=== PATIENT | female | born 1990 | race Asian ===

== ENCOUNTER 2018-09-14 11:55 | Emergency (ER) | payer OTHER ==
[~2018-09-14] VITALS: Ht 165.1 cm; Wt 62.3 kg
[2018-09-14 11:56] VITALS: BP 134/95
[2018-09-14 12:43] LABS: INFLUENZA A AMPLIFICATION NEGATIVE (NEGATIVE); INFLUENZA B AMPLIFICATION NEGATIVE (NEGATIVE)
[2018-09-14] MEDS ORDERED: ACETAMINOPHEN 325 MG TAB PO ONE (14:15)
== END 2018-09-14 14:26 | disposition home or self-care (01) ==
LOC: M ED 11:55
DX: K52.9 Noninfective gastroenteritis and colitis, unspecified (principal); B34.9 Viral infection, unspecified; R10.9 Unspecified abdominal pain; N94.4 Primary dysmenorrhea; Z88.8 Allergy status to other drugs, medicaments and biological substances

== ENCOUNTER → 2019-06-04 | Outpatient (CLI) | payer OTHER ==
[2019-06-04 14:18] LABS: BASO % 0.3 % (0.0-1.0); EOS # 0.4 10^3/uL (0.0-0.5); EOS % 3.9 % (0.0-3.0); HEMATOCRIT 40.1 % (36.0-47.0); HEMOGLOBIN 13.4 g/dl (12.0-15.5); LYMPH # 1.8 10^3/uL (1.5-5.0); LYMPH % 19.6 % (24.0-44.0); MEAN CORPUSCULAR HGB CONC 33.4 g/dl (32.0-36.5); MEAN CORPUSCULAR VOLUME 86.8 fl (80.0-96.0); MONO % 10.6 % (0.0-5.0); NEUTROPHILS % 65.3 % (36.0-66.0); PLATELET COUNT, AUTOMATED 272 10^3/uL (150-450); RED BLOOD COUNT 4.62 10^6/uL (4.00-5.40); WHITE BLOOD COUNT 9.2 10^3/uL (4.0-10.0)
[2019-06-04 19:44] LABS: CHLAMYDIA DNA AMPLIFICATION NEGATIVE (NEGATIVE); GC DNA AMPLIFICATION NEGATIVE (NEGATIVE)
[2019-06-05 18:14] LABS: HEPATITIS C VIRUS ABY INDEX < 0.0 INDEX (<0.8); HIV 1&2 SCREEN CENTAUR NEGATIVE (NEGATIVE); RUBELLA IgG QUALITATIVE IMMUNE (IMMUNE)
== END ==
LOC: M PLALAB 11:41
PROVIDERS: ATTEND Advanced Practice Midwife
DX: Z34.01 Encounter for supervision of normal first pregnancy, first trimester (principal)

== ENCOUNTER → 2019-07-02 | Outpatient (CLI) | payer OTHER | LOC: M PLALAB 15:29 | PROVIDERS: ATTEND Advanced Practice Midwife | DX: Z13.79 Encounter for other screening for genetic and chromosomal anomalies (principal) ==

== ENCOUNTER → 2019-07-08 | Outpatient (REF) | payer OTHER | LOC: M SFHCWAGY 13:06 | PROVIDERS: ATTEND Advanced Practice Midwife | DX: Z34.02 Encounter for supervision of normal first pregnancy, second trimester (principal) ==

== ENCOUNTER → 2019-08-06 | Outpatient (REF) | payer OTHER | LOC: M SFHCWAGY 13:12 | PROVIDERS: ATTEND Advanced Practice Midwife | DX: Z34.02 Encounter for supervision of normal first pregnancy, second trimester (principal) ==

== ENCOUNTER → 2019-08-06 | Outpatient (CLI) | payer OTHER ==
--- NOTE | 2019-08-06 10:12 | REP ---
There is symmetric ultrasound for anatomy: There is a single intrauterine gestation in a vertex presentation. There is movement and cardiac activity. The heart rate is 153 beats per minute. The placenta is fundal. There is no previa or abruptio. The placenta is grade 1. The amniotic fluid volume subjectively is normal. The cervix measures 3.1 cm. Gestational age by today's ultrasound is 18 weeks 1 day/BENY 01/06/2020. Gestational age by LMP is 18 weeks 1 day/BENY 01/06/2020. weight is 232 grams/0 pounds, 8 ounces. This is the 51st percentile for 18 weeks 1 day. The following anatomic structures are identified and are unremarkable: The cranium, choroid plexus, cavum septum pellucidum, cerebellum, diaphragm, stomach, cord insertion, three-vessel cord, kidneys, bladder, spine and upper lower extremities. Suboptimally demonstrated because of position are: Facial profile, upper lip, four-chamber heart, cardiac right and left ventricular outflow tracts. A followup study dedicated to these structures might be considered. Electronically Signed by Jae Iraheta MD 08/06/2019 10:03 A
== END ==
LOC: M WHC 08:36
PROVIDERS: ATTEND Advanced Practice Midwife
DX: Z34.02 Encounter for supervision of normal first pregnancy, second trimester (principal)

== ENCOUNTER → 2019-09-28 | Outpatient (REF) | payer OTHER ==
[2019-09-28 14:15] LABS: HEMATOCRIT 36.2 % (36.0-47.0); HEMOGLOBIN 12.4 g/dl (12.0-15.5); MEAN CORPUSCULAR HEMOGLOBIN 30.7 pg (27.0-33.0); MEAN CORPUSCULAR HGB CONC 34.3 g/dl (32.0-36.5); MEAN CORPUSCULAR VOLUME 89.6 fl (80.0-96.0); PLATELET COUNT, AUTOMATED 246 10^3/uL (150-450); RED BLOOD COUNT 4.04 10^6/uL (4.00-5.40); WHITE BLOOD COUNT 12.3 10^3/uL (4.0-10.0)
== END ==
LOC: M PLALAB 10:56
PROVIDERS: ATTEND Specialist
DX: Z34.02 Encounter for supervision of normal first pregnancy, second trimester (principal); Z3A.25 25 weeks gestation of pregnancy

== ENCOUNTER → 2019-09-28 | Outpatient (CLI) | payer OTHER ==
--- NOTE | 2019-09-29 06:12 | REP ---
Clinical: Anatomical evaluation. Comparison: 08/05/2019 . Findings: Examination demonstrates a single live intrauterine in cephalic presentation. motion is identified by technologist. Placenta is noted anterior and grade I without evidence for placenta previa or abruption. Amniotic fluid volume is normal. Cervix measures 3.2 cm in length and appears closed. No evidence for nuchal cord. Gestational age by LMP 25 weeks 5 days with BENY 01/06/2020 . Gestational age by current measurements 25 weeks 1 day with BENY 01/10/2020 . FHR equals 169 beats per minute. Estimated weight 781 grams ( 30th percentile). Anatomical assessment demonstrates normal structures including cranium, choroid plexus, cavum, cerebellum/posterior fossa, facial features, lungs, four-chamber heart/ventricular outflow tracts, diaphragm, stomach, cord insertion/three-vessel cord, kidneys/bladder. Impression: Single live intrauterine in cephalic presentation demonstrating appropriate interval growth. In conjunction with prior examination anatomical assessment is complete and normal. No gross abnormalities are identified.
== END ==
LOC: M WHC 09:54
PROVIDERS: ATTEND Advanced Practice Midwife
DX: Z34.02 Encounter for supervision of normal first pregnancy, second trimester (principal); Z3A.25 25 weeks gestation of pregnancy

== ENCOUNTER → 2019-10-05 | Outpatient (CLI) | payer OTHER | LOC: M LAB 06:53 | PROVIDERS: ATTEND Advanced Practice Midwife | DX: O99.810 Abnormal glucose complicating pregnancy (principal) ==

== ENCOUNTER → 2019-11-16 | Outpatient (CLI) | payer OTHER ==
--- NOTE | 2019-11-16 15:19 | REP ---
OB ULTRASOUND: Real-time sonographic evaluation of the gravid uterus performed. There is a single intrauterine gestation. The estimated gestational age is 32 weeks 5 days with EDC 01/06/2020. Today's measurements indicate appropriate growth. Biometry and Growth: BPD 87 mm = 35 weeks 1 day, 86th percentile HC 297 mm = 32 weeks 6 days, 52nd percentile AC 269 mm = 31 weeks 0 days, 25th percentile FL 62 mm = 32 weeks 2 days, 44th percentile HC/AC ratio 1.10 within normal range of 0.95 to 1.14. Estimated weight 1825 grams, 25th percentile. SEEN/GROSSLY UNREMARKABLE Lateral ventricles Yes Posterior fossa Yes Upper lip Yes Four-chamber heart Yes LVOT Yes RVOT Yes Stomach Yes Cord insertion Yes Three vessel cord Yes Kidneys Yes Bladder Yes Spine Yes Cervical length: Closed and measures 3.0 cm in length. heart rate: 142 beats per minute. position: Vertex. Placenta: Anterior and grade 1 with no previa or abruption. Amniotic fluid: Within normal limits. PEG: 15.5 within normal range of 8.4 to 24.4.
== END ==
LOC: M WHC 10:42
PROVIDERS: ATTEND Specialist
DX: O24.415 Gestational diabetes mellitus in pregnancy, controlled by oral hypoglycemic drugs (principal); Z3A.32 32 weeks gestation of pregnancy

== ENCOUNTER → 2019-11-26 | Outpatient (REF) | payer OTHER | LOC: M SFHCWAGY 17:04 | PROVIDERS: ATTEND Advanced Practice Midwife | DX: R30.0 Dysuria (principal) ==

== ENCOUNTER → 2019-12-08 | Outpatient (CLI) | payer OTHER ==
--- NOTE | 2019-12-08 16:24 | REP ---
REASON: Followup growth. Multiple ultrasonographic images of the gravid uterus show a single living intrauterine gestation in the cephalic presentation. Doppler interrogation of the heart shows a heart rate of 155 beats per minute. The placenta is anterior and not low lying. The cervix measures 3.1 cm in length and is closed. The subjective amniotic fluid volume is within normal limits. Evaluation of the maternal adnexa showed no abnormalities. BPD 9.1 cm = 36 weeks 5 days HC 31.9 cm = 35 weeks 6 days AC 31.9 cm = 35 weeks 5 days FL 7.0 cm = 35 weeks 5 days Estimated weight is 2792 grams which is at the 51st percentile for a 84-fgth-5-day gestational age. The calculated amniotic fluid index is 9.6 with an expected range of 7.7 to 24.9. IMPRESSION: Single living intrauterine gestation as described above with an estimated gestational age of 35 weeks 4 days via composite criteria and estimated date of delivery 01/08/2020 by today's exam.
== END ==
LOC: M WHC 12:03
PROVIDERS: ATTEND Advanced Practice Midwife
DX: O24.425 Gestational diabetes mellitus in childbirth, controlled by oral hypoglycemic drugs (principal)

== ENCOUNTER 2019-12-31 13:00 | Inpatient (IN) | payer OTHER ==
[~2019-12-31 13:00] MED LIST: metFORMIN (GLUCOPHAGE) 1000 MG TABLET ONE
[2019-12-31] MEDS ORDERED: miSOPROStol 50 MCG 1/2 TAB (S0191) As Ordered ONE ×3 (13:50→18:10)
[2019-12-31] MEDS ORDERED: miSOPROStol 50 MCG 1/2 TAB (S0191) ONE ×3 (13:50→18:10)
[2019-12-31] MEDS ORDERED: OXYTOCIN 30 UNITS IN 0.9% NaCl 500ML IV BAG (J2590) As Ordered ONE (23:09)
[2019-12-31] MEDS ORDERED: OXYTOCIN 30 UNITS IN 0.9% NaCl 500ML IV BAG (J2590) ONE (23:09)
[2020-01-01] MEDS ORDERED: FENTANYL 2MCG/ML ROPIVACAINE 0.2% IN 0.9% NACL 100ML IVBAG As Ordered ONE (00:53)
[2020-01-01] MEDS ORDERED: FENTANYL 2MCG/ML ROPIVACAINE 0.2% IN 0.9% NACL 100ML IVBAG ONE (00:53)
[2020-01-01] MEDS ORDERED: ePHEDrine SULFATE 25 MG/5 ML(5MG/ML) SYRINGE ONE (02:36)
[2020-01-01] MEDS ORDERED: ONDANSETRON 4MG/2ML VIAL As Ordered ONE ×4 (02:36→17:41)
[2020-01-01] MEDS ORDERED: ONDANSETRON 4MG/2ML VIAL ONE ×5 (02:36→17:41)
[2020-01-01] MEDS ORDERED: ePHEDrine SULFATE 25 MG/5 ML(5MG/ML) SYRINGE As Ordered ONE (03:16)
[2020-01-01] MEDS ORDERED: BICITRA 30ML SOLN UDC ONE (08:51)
[2020-01-01] MEDS ORDERED: BICITRA 30ML SOLN UDC As Ordered ONE (08:51)
[2020-01-01] MEDS ORDERED: ceFAZolin 2 GM/D5W 50 ML IV BAG (J0690 PER 500MG) ONE (08:51)
[2020-01-01] MEDS ORDERED: ceFAZolin 2 GM/D5W 50 ML IV BAG (J0690 PER 500MG) As Ordered ONE (08:52)
[2020-01-01] MEDS ORDERED: OXYTOCIN INJ 10 UNITS/ML VIAL (J2590) ONE (09:56)
[2020-01-01] MEDS ORDERED: LIDOCAINE 2% W/EPINEPHRINE 20ML VIAL **PRES FREE ONE (09:56)
[2020-01-01] MEDS ORDERED: MORPHINE PRES-FREE INJ 10 MG/10 ML VIAL (J2274) ONE (09:56)
[2020-01-01] MEDS ORDERED: dexameTHASONE 4 MG/ML 1ML VIAL (J1100 PER 1MG) ONE (09:56)
[2020-01-01] MEDS ORDERED: KETOROLAC 60MG 2ML VIAL ONE (09:56)
[2020-01-01] MEDS ORDERED: PHENYLephrine HCL 500 MCG/5 ML (100MCG/ML) SYRINGE (J2370) ONE (09:56)
[2020-01-01] MEDS ORDERED: OXYTOCIN 30 UNITS IN 0.9% NaCl 500ML IV BAG (J2590) As Ordered ONE (11:05)
[2020-01-01] MEDS ORDERED: KETOROLAC 30 MG/ML 1ML VIAL ONE (21:20)
[2020-01-01] MEDS ORDERED: KETOROLAC 30 MG/ML 1ML VIAL As Ordered ONE (21:20)
[2020-01-02] MEDS ORDERED: KETOROLAC 30 MG/ML 1ML VIAL As Ordered ONE ×2 (04:05→10:14)
[2020-01-02] MEDS ORDERED: KETOROLAC 30 MG/ML 1ML VIAL ONE ×2 (04:05→10:14)
[2020-01-02] MEDS ORDERED: MOM 30ML SUSPENSION UDC ONE (19:02)
[2020-01-02] MEDS ORDERED: IBUPROFEN 800 MG TAB ONE (19:02)
[2020-01-02] MEDS ORDERED: PERCOCET 5MG/325MG TAB ONE (23:42)
[2020-01-03] MEDS ORDERED: IBUPROFEN 800 MG TAB As Ordered ONE ×2 (04:11→13:00)
[2020-01-03] MEDS ORDERED: IBUPROFEN 800 MG TAB ONE ×2 (04:11→13:00)
[2020-01-03] MEDS ORDERED: PERCOCET 5MG/325MG TAB As Ordered ONE ×3 (08:26→22:26)
[2020-01-03] MEDS ORDERED: PERCOCET 5MG/325MG TAB ONE ×2 (13:00→22:26)
[2020-01-04] MEDS ORDERED: PERCOCET 5MG/325MG TAB As Ordered ONE (05:30)
[2020-01-04] MEDS ORDERED: PERCOCET 5MG/325MG TAB ONE ×2 (05:30→08:26)
[2020-02-19 15:09] LABS: HEMATOCRIT 30.6 % (36.0-47.0); HEMOGLOBIN 9.9 g/dl (12.0-15.5); MEAN CORPUSCULAR HGB CONC 32.4 g/dl (32.0-36.5); MEAN CORPUSCULAR VOLUME 86.7 fl (80.0-96.0); PLATELET COUNT, AUTOMATED 181 10^3/uL (150-450); RED BLOOD COUNT 3.53 10^6/uL (4.00-5.40); WHITE BLOOD COUNT 15.1 10^3/uL (4.0-10.0)
[2020-02-27 11:31] LABS: HEMATOCRIT 36.6 % (36.0-47.0); HEMOGLOBIN 11.8 g/dl (12.0-15.5); MEAN CORPUSCULAR HEMOGLOBIN 27.7 pg (27.0-33.0); MEAN CORPUSCULAR HGB CONC 32.2 g/dl (32.0-36.5); MEAN CORPUSCULAR VOLUME 85.9 fl (80.0-96.0); PLATELET COUNT, AUTOMATED 223 10^3/uL (150-450); RED BLOOD COUNT 4.26 10^6/uL (4.00-5.40); WHITE BLOOD COUNT 10.5 10^3/uL (4.0-10.0)
--- NOTE | 2020-03-03 14:12 | RO ---
DATE OF OPERATION: 01/01/2020 PREOPERATIVE DIAGNOSES: Term , gestational diabetes, arrest of descent. POSTOPERATIVE DIAGNOSES: Term , gestational diabetes, arrest of descent. PROCEDURE: Primary low-transverse section. SURGEON: Nav Fitzpatrick MD EMS INSTRUCTOR: Finn Mccarthy MD ANESTHESIA: Epidural. ESTIMATED BLOOD LOSS: 500 mL. URINE OUTPUT: 150 mL. IV FLUIDS: 800 mL LR. FINDINGS: A 7 pound (3190 grams) female with Apgars 8 and 9. Occiput posterior position. Normal uterus, fallopian tubes, and ovaries. DESCRIPTION OF PROCEDURE: The patient was taken to the operating room where epidural anesthesia was adequate. She was prepped and draped in sterile fashion in the supine position. A Botello catheter was already in place. Pfannenstiel skin incision was made with a scalpel and carried through to the fascia. The fascia was nicked and extended. The fascia was resected off the rectus muscle and the peritoneal cavity was entered. Bladder flap was created. A Mobius retractor was placed. A curvilinear incision was made in the lower uterine segment until clear fluid was noted. This was extended manually. The was delivered in the vertex position without difficulty. The cord was double clamped and cut. The baby was handed off to the waiting nurses. The placenta was expressed. The uterus was closed with 0-Vicryl in a running lock fashion. A second imbricating layer of 0-Vicryl was placed. The Mobius retractor was removed. The peritoneum was closed with 2-0 Vicryl in a running fashion. The fascia was closed with 0- Vicryl. The deep layer was irrigated and closed with 2-0 Chromic. The skin was closed with 4-0 Monocryl subcuticular sutures. Sponge, instrument, and needle counts were correct. MTDD
--- NOTE | 2020-03-09 13:22 | DSES ---
DATE OF ADMISSION: 12/31/2019 DATE OF DISCHARGE: 01/03/2020 ADMISSION DIAGNOSIS: 39 weeks with gestational diabetes on oral agents. DISCHARGE DIAGNOSIS: Delivered. PROCEDURE: Primary low transverse section. HISTORY OF PRESENT ILLNESS: A 29-year-old G1, P0 female, 39 weeks gestation presented for labor induction. The indication for induction was gestational diabetes on metformin. HOSPITAL COURSE: The patient had induction initiated on 12/31/2019. She Misoprostol utilized initially. She made slow progress in labor. She received the second stage of labor and pushed for approximately 3+ hours. She had arrest of descent. On 01/01/2020, the decision was made to proceed with . She underwent a for a 7 pound 1 ounce female infant with Apgars 8 and 9. There were no complications. Her postoperative course was unremarkable. She had adequate return of bladder and bowel function. She was deemed stable for discharge on postoperative day #2. DISPOSITION: The patient will follow-up with Dr. Fitzpatrick in two weeks. Instructions reviewed. AMY
== END 2020-01-04 09:00 | disposition home or self-care (01) | DRG 773 ==
LOC: M LDI 13:00
PROVIDERS: ADMIT Specialist; ATTEND Specialist
PROC: 3E0DXGC Introduction of Other Therapeutic Substance into Mouth and Pharynx, External Approach (ICD-10-PCS; 2019-12-31)
PROC: 10D00Z1 Extraction of Products of Conception, Low, Open Approach (ICD-10-PCS; principal; 2020-01-01)
DX: O24.425 Gestational diabetes mellitus in childbirth, controlled by oral hypoglycemic drugs (principal); Z37.0 Single live birth; Z88.8 Allergy status to other drugs, medicaments and biological substances; O32.4XX0 Maternal care for high head at term, not applicable or unspecified; Z3A.39 39 weeks gestation of pregnancy

== ENCOUNTER → 2020-08-01 | Outpatient (REF) | payer OTHER | LOC: M SFHCWAGY 18:41 | PROVIDERS: ATTEND Specialist | DX: Z01.419 Encounter for gynecological examination (general) (routine) without abnormal findings (principal) | CPT/HCPCS: 87624; G0123 ==